=== PATIENT | male | born 2000 | race Caucasian/White ===

== ENCOUNTER 2024-04-10 14:44 | Emergency (ER) | payer OTHER, SELFPAY ==
[2024-04-10 14:56] VITALS: BP 141/90
[2024-04-10 15:33] LABS: % Basophils 0.6 % (0-2); % Immature Granulocytes 0.1 % (0-0.5); % Monocytes 6.3 % (1.7-9.3); Absolute Basophils 0.1 10^3/uL (0-0.2); Absolute Lymphocytes 1.7 10^3/uL (1.2-3.4); Absolute Monocytes 0.5 10^3/uL (0.1-0.6); Absolute Neutrophils 5.6 10^3/uL (1.4-6.5); Hematocrit 43.1 % (39.0-52.0); Hemoglobin 15.2 g/dL (13.0-18.0); Mean Corp Hgb Conc. 35.3 g/dL (33.0-37.0); Mean Corpuscular Hgb 29.4 pg (27.0-31.0); Mean Corpuscular Volume 83.4 fL (80.0-94.0); Mean Platelet Volume 9.3 fL (7.4-10.4); Nucleated Red Blood Cells % 0 % (-); Platelet Count 291 10^3/uL (130-400); Red Blood Cell Count 5.17 10^6/uL (4.70-6.10); Red Cell Dist. Width 12.6 % (11.5-14.5); White Blood Cell Count 7.8 10^3/uL (4.8-10.8)
[2024-04-10 15:50] LABS: Urine Albumin Negative (Neg - Trace); Urine Bilirubin Negative (Negative); Urine Character Clear (Clear); Urine Color Straw; Urine Glucose Negative (Negative); Urine Ketone Negative (Negative); Urine Leukocyte Negative (Negative); Urine Nitrite Negative (Negative); Urine Occult Blood Negative (Negative); Urine Specific Gravity 1.005 (<1.030); Urine Urobilinogen Negative (Neg - 1+)
[2024-04-10 15:57] LABS: ALT (SGPT) 14 U/L (0-50); AST (SGOT) 17 U/L (17-59); Albumin 4.9 g/dl (3.5-5.0); Alkaline Phosphatase 47 U/L (38-126); Blood Urea Nitrogen 17 mg/dl (9-20); Calcium 10.1 mg/dl (8.4-10.2); Carbon Dioxide 24 mmol/L (22-30); Chloride 102 mmol/L (98-107); Glucose 111 mg/dl (70-99); Lipase 80 U/L (23-300); Potassium 4.2 mmol/L (3.5-5.1); Sodium 137 mmol/L (135-145); Total Bilirubin 2.3 mg/dl (0.2-1.3); eGFR > 60.00
[2024-04-10] MEDS: PROTONIX 40 MG PO (16:59)
[2024-04-10 19:18] VITALS: BP 118/78
--- NOTE | 2024-04-10 19:26 | ED.GENMED ---
History of Present Illness
General
Chief Complaint: Abdominal Symptoms
Source: patient
Exam Limitations: none
Time Seen by Provider: 04/10/24 16:20
Travel History
Have you had any contact with someone who has COVID-19?: No
Do you have any symptoms of coronavirus? Fever > 100 degrees, chills, cough, shortness of breath, sore throat, loss of taste or smell, muscle aches, or headache?: No
History of Present Illness
History of Present Illness:
23-year-old male with almost 1 week of vague upper abdominal discomfort. No vomiting. No change in bowels no fever. Symptoms are mild but ongoing in nature
Past History
Past History
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
ED Past Surgical History: Appendectomy
Social History
Tobacco: Non-smoker
Phy Exam
Physical Exam
Physical Exam:
GENERAL: Alert and oriented in no apparent distress
EYE: Orbits normal.
NECK: Supple
CARDIAC: Regular rate and rhythm without any obvious murmurs.
LUNGS: Clear breath sounds,normal
ABDOMEN: Soft, normal epigastric tenderness. No rebound or guarding no mass or hernia
NEUROLOGICAL: Alert and oriented , grossly non-focal
SKIN: Warm and dry, no rash or lesion, no discoloration, skin intact.
MUSCULOSKELETAL: No edema,no deformity.Good color
PSYCH: Normal and appropriate interaction.
Course
Orders/Labs/Results
Orders:
Orders
04/10/24 15:18
Complete Blood Count/With Diff Urgent
Comprehensive Metabolic Panel Urgent
Lipase Urgent
04/10/24 15:22
Urinalysis Reflex To Culture Urgent
Date Specimen was Collected: 04/10/24
Time Specimen was Collected: 15:01
04/10/24 16:53
US Abdomen Complete/Upper Urgent
Comment:
Reason For Exam: Upper abdominal pain
04/10/24 16:54
Pantoprazole [Protonix] 40 mg PO NOW STA
Abnormal Lab Results
04/10/24
15:18
Glucose 111 H mg/dl
(70-99)
Total Bilirubin 2.3 H mg/dl
(0.2-1.3)
04/10/24 15:18
04/10/24 15:18
Vital Signs
Initial and Last Documented VS:
Initial Vital Signs
Temp Pulse Resp BP Pulse Ox
99.9 F 105 20 141/90 99
04/10/24 14:56 04/10/24 14:56 04/10/24 14:56 04/10/24 14:56 04/10/24 14:56
Last Documented Vital Signs
Temp Pulse Resp BP Pulse Ox
99.9 F 105 18 118/78 98
04/10/24 14:56 04/10/24 19:20 04/10/24 19:18 04/10/24 19:18 04/10/24 19:18
MDM/Problems Addressed
Differential Diagnosis Includes:
Likely gastritis. Incidental Gaubert syndrome. Ultrasound negative. PPI and follow-up
*Radiology
Radiology exam reviewed: radiology read reviewed (Negative ultrasound)
*Pulse Oximetry
Patient hypoxic: no
*Critical Care Note
Total Time (30-74mins, 75-104mins- exclusive of procedures): Not Applicable
Data Reviewed
Review of Other/Old Records Reveals: Labs and Testing
Update Note
Update Note:
Patient medically stable and nontoxic. Likely gastritis. Incidental Gaubert syndrome. PPI and follow-up
ED Attending Note
-
Portions of this chart may have been created with voice recognition software.� Occasional wrong word or��sound alike� substitutions may have occurred due to the inherent limitations of voice recognition software.
Discharge Plan
Departure
Patient Disposition: Home (Routine Discharge)
Date of Disposition: 04/10/24
Time of Disposition: 19:27
Patient with high blood pressure during this ER visit?: No
Discharge Problem:
Epigastric pain
Instructions: Abdominal Pain
Prescriptions:
New
pantoprazole [Protonix] 40 mg tablet,delayed release (DR/EC)
40 mg PO DAILY 14 Days Qty: 14 0RF
No Action
ranitidine HCl [Zantac Maximum Strength] 150 MG tablet
150 mg PO PRN PRN (Reason: as directed)
Referrals:
Nery Blanco MD [Active] - Next open appointment
NONE,* [Family Provider] -
Activity Restrictions/Additional Instructions:
Protonix as directed
Light diet
I gave you the name of a GI physician you could call for follow-up. You should also follow-up with your regular physician
Return sooner with increased pain fever vomiting or if symptoms have not resolved in 2 to 4 days
Interventions
Interventions:
*Risk Screen - Suicide Last Done: 04/10/24 16:18
*General Assessment Last Done: 04/10/24 16:18
*Neglect/Abuse Screening Last Done: 04/10/24 16:18
ED- Fall Risk Assessment Last Done: 04/10/24 16:19
*ED COVID-19 Vaccine History Last Done: 04/10/24 16:18
RM-Lptnlu-Jxjmcvdmfp Assessment Last Done: 04/10/24 16:19
Discharge Date and Time
Print Language: WALLISIAN
== END 2024-04-10 19:41 | disposition home or self-care (01) ==
LOC: EMR 14:44
PROVIDERS: EMERGENCY PHYSICIAN Emergency Medicine
DX: R10.13 Epigastric pain (principal); E80.4 Gilbert syndrome; Z88.0 Allergy status to penicillin
CPT/HCPCS: 99284; 76700; 80053; 81003; 83690; 85025

== ENCOUNTER 2024-09-18 17:49 | Emergency (ER) | payer OTHER, SELFPAY ==
[2024-09-18 17:54] VITALS: BP 153/114
[2024-09-18 18:18] LABS: % Basophils 0.8 % (0-2); % Eosinophils 0.6 % (0-6); % Immature Granulocytes 0.3 % (0-0.5); % Lymphocytes 36.5 % (20.5-51.1); % Monocytes 9.9 % (1.7-9.3); % Neutrophils 51.9 % (42.2-75.2); Absolute Basophils 0.1 10^3/uL (0-0.2); Absolute Eosinophils 0.1 10^3/uL (0-0.7); Absolute Lymphocytes 2.9 10^3/uL (1.2-3.4); Absolute Monocytes 0.8 10^3/uL (0.1-0.6); Absolute Neutrophils 4.1 10^3/uL (1.4-6.5); Hematocrit 43.2 % (39.0-52.0); Hemoglobin 15.4 g/dL (13.0-18.0); Mean Corp Hgb Conc. 35.6 g/dL (33.0-37.0); Mean Corpuscular Hgb 29.6 pg (27.0-31.0); Mean Corpuscular Volume 83.1 fL (80.0-94.0); Nucleated Red Blood Cells % 0 % (-); Platelet Count 308 10^3/uL (130-400); Red Cell Dist. Width 12.4 % (11.5-14.5); White Blood Cell Count 7.8 10^3/uL (4.8-10.8)
[2024-09-18 18:40] LABS: ALT (SGPT) 15 U/L (0-50); AST (SGOT) 18 U/L (17-59); Albumin 4.9 g/dl (3.5-5.0); Alkaline Phosphatase 43 U/L (38-126); Blood Urea Nitrogen 24 mg/dl (9-20); Calcium 9.7 mg/dl (8.4-10.2); Carbon Dioxide 18 mmol/L (22-30); Chloride 102 mmol/L (98-107); Glucose 116 mg/dl (70-99); Potassium 3.9 mmol/L (3.5-5.1); Sodium 138 mmol/L (135-145); Total Bilirubin 3.7 mg/dl (0.2-1.3); Total Protein 7.6 g/dl (6.3-8.2); eGFR > 60.00
[2024-09-18 18:50] LABS: Troponin I < 0.012 ng/ml
--- NOTE | 2024-09-18 20:02 | ED.GENMED ---
History of Present Illness
General
Chief Complaint: Breathing Problem
Source: patient and family
Time Seen by Provider: 09/18/24 19:35
History of Present Illness
History of Present Illness:
23yoM with no significant past medical history presenting with his mother for evaluation of shortness of breath. Symptoms began 2 days ago. He reports intermittent dyspnea, chest tightness, and palpitations over the past few days. Symptoms occur at
different times including at night while he is trying to sleep. He also had palpitations while walking up the steps earlier today. He was able to go for a run and had minimal symptoms with exercise. He is unsure if his symptoms are related to
anxiety. He admits to being on edge recently due to job stressors. No syncope. No tobacco use or family history of cardiac disease.
Past History
Past History
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
ED Past Surgical History: Appendectomy
Social History
Tobacco: Non-smoker
Phy Exam
Physical Exam
Physical Exam:
Patient visibly anxious and fidgeting during exam
General Physical Exam
General Presentation: well appearing and no apparent distress
General age: appears stated age
General Skin: warm and dry
General Mental: anxious
ENT Exam
ENT Exam: normocephalic
Cardiovascular Exam
Cardiovascular Exam: no murmur and tachycardia
Pulmonary Exam
Pulmonary Exam: lungs clear, no respiratory distress, no rales, no crackles, no rhonchi and no wheezing
[place] Coma Scale
Eye Opening: Spontaneous
Verbal Response: Oriented
Motor Response: Obeys Commands
GCS Total Score: 15
Skin Exam
Skin Exam: normal color and warm/dry
Psychiatric Exam
Psychiatric Exam: anxious
Course
Orders/Labs/Results
Orders:
Orders
09/18/24 17:50
Electrocardiogram (*1) Urgent
Reason for Study: Shortness of Breath
09/18/24 17:51
EKG- Treatment ONCE
09/18/24 18:07
Complete Blood Count/With Diff Urgent
Comprehensive Metabolic Panel Urgent
Magnesium Urgent
Comment: ADDON
TSH Urgent
Comment: ADDON
Troponin I Urgent
09/18/24 20:01
Add On- LAB Urgent
Tests Added?: TSH, magnesium
Lorazepam [Ativan] 1 mg IV NOW STA
CR Chest - 2 Views Urgent
Comment:
Reason For Exam: SOB
09/18/24 20:32
D-Dimer Urgent
09/18/24 20:34
Electrocardiogram (*1) Urgent
Reason for Study: Chest Pain
EKG- Treatment ONCE
Abnormal Lab Results
09/18/24
18:07
Absolute Monos (auto) 0.8 H 10^3/uL
(0.1-0.6)
Monocytes % 9.9 H %
(1.7-9.3)
Carbon Dioxide 18 L mmol/L
(22-30)
BUN 24 H mg/dl
(9-20)
Glucose 116 H mg/dl
(70-99)
Total Bilirubin 3.7 H mg/dl
(0.2-1.3)
09/18/24 18:07
09/18/24 18:07
Vital Signs
Initial and Last Documented VS:
Initial Vital Signs
Temp Pulse Resp BP Pulse Ox
98.3 F 116 18 153/114 100
09/18/24 17:54 09/18/24 17:54 09/18/24 17:54 09/18/24 17:54 09/18/24 17:54
Last Documented Vital Signs
Temp Pulse Resp BP Pulse Ox
98.3 F 98 16 146/89 99
09/18/24 17:54 09/18/24 22:24 09/18/24 22:24 09/18/24 22:21 09/18/24 22:21
MDM/Problems Addressed
Differential Diagnosis Includes:
23yoM here with intermittent SOB, palpitations, and chest tightness x 2 days. Heart rate 116 in triage. Oxygen saturation 100%. He is anxious and fidgeting during exam. Differential diagnosis includes but is not limited to: anxiety, arrhythmia,
thyroid dysfunction, pneumonia, less likely ACS
Initial ED plan: Cardiac labs and EKG obtained in triage. EKG shows sinus tachycardia with a HR of 140. Troponin WNL. Bilirubin is 3.7, patient has a documented history of Gilbert syndrome. Will add on magnesium, TSH, D-dimer, CXR, and repeat EKG.
IV Ativan for symptoms.
*EKG
Interpreted by ED Provider?: Yes
EKG Intrepretation Date: 09/18/24
Heart Rate: 111
Rate: tachycardiac
Rhythm: sinus
[place]: normal axis
Interval: normal interval
QRS Pattern: normal QRS
Ischemia: no ischemia
*Critical Care Note
Total Time (30-74mins, 75-104mins- exclusive of procedures): Not Applicable
Update Note
Update Note:
Repeat EKG shows sinus tachycardia with a HR of 111. EKG is otherwise normal. TSH and electrolytes normal. D-dimer normal making PE very unlikely. CXR is clear. Patient feeling improved after receiving Ativan. Heart rate also improved. No indication
for hospitalization. Patient does endorse a lot of anxiety recently. Prescription provided for PRN hydroxyzine. Advised close f/u with PCP and ED return precautions discussed. He expressed understanding and is agreeable to plan. He was discharged in
stable condition.
ED Attending Note
-
Portions of this chart may have been created with voice recognition software.� Occasional wrong word or��sound alike� substitutions may have occurred due to the inherent limitations of voice recognition software.
Discharge Plan
Departure
Patient Disposition: Home (Routine Discharge)
Date of Disposition: 09/18/24
Time of Disposition: 22:21
Patient with high blood pressure during this ER visit?: No
Discharge Problem:
Palpitations, Anxiety
Instructions: Heart Palpitations
Prescriptions:
New
hydroxyzine HCl 25 mg tablet
25 mg PO TID PRN (Reason: anxiety) Qty: 14 0RF
No Action
ranitidine HCl [Zantac Maximum Strength] 150 MG tablet
150 mg PO PRN PRN (Reason: as directed)
pantoprazole [Protonix] 40 mg tablet,delayed release (DR/EC)
40 mg PO DAILY 14 Days Qty: 14 0RF
Referrals:
NONE,* [Family Provider] -
Activity Restrictions/Additional Instructions:
Take hydroxyzine as needed for anxiety.
Please follow-up with your family doctor. Return to the ER with any new or worsening symptoms.
Interventions
Interventions:
*Risk Screen - Suicide Last Done: 09/18/24 22:28
*General Assessment Last Done: 09/18/24 22:28
*Neglect/Abuse Screening Last Done: 09/18/24 22:28
ED- Fall Risk Assessment Last Done: 09/18/24 22:28
*ED COVID-19 Vaccine History Last Done: 09/18/24 20:37
*Nursing Disposition Last Done: 09/18/24 22:28
ED- Cardiac Assessment Last Done: 09/18/24 20:31
ED- Pulmonary Assessment Last Done: 09/18/24 20:31
Discharge Date and Time
Discharge Date/Time: 09/18/24 22:30
Print Language: [place]ET[place]ESE
[2024-09-18] MEDS: ATIVAN 1 MG IV (20:28)
[2024-09-18 20:30] VITALS: BP 142/98
[2024-09-18 20:34] LABS: Magnesium 1.6 mg/dl (1.6-2.3)
[2024-09-18 20:55] LABS: D-Dimer < 0.27 ug/mlFEU (0.00-0.50)
[2024-09-18 21:00] VITALS: BP 144/90
[2024-09-18 22:09] LABS: TSH 2.78 uIU/ml (0.47-4.68)
[2024-09-18 22:21] VITALS: BP 146/89
== END 2024-09-18 22:30 | disposition home or self-care (01) ==
LOC: EMR 17:49
PROVIDERS: Physician Assistant; Student in an Organized Health Care Education/Training Program; EMERGENCY PHYSICIAN Emergency Medicine
DX: F41.9 Anxiety disorder, unspecified (principal); R00.2 Palpitations; Z90.49 Acquired absence of other specified parts of digestive tract
CPT/HCPCS: 96374; 99285; 71046; 80053; 83735; 84443; 84484; 85025; 85379; 93005

== ENCOUNTER → 2024-11-13 09:36 | Outpatient (REF) | payer OTHER, SELFPAY | LOC: HWRAD 09:36 | PROVIDERS: ATTENDING PHYSICIAN Nurse Practitioner Adult Health | DX: J45.909 Unspecified asthma, uncomplicated (principal) | CPT/HCPCS: 71046 ==

== ENCOUNTER 2025-05-03 00:37 | Emergency (ER) | payer OTHER, SELFPAY ==
[2025-05-03 00:41] VITALS: BP 123/82
--- NOTE | 2025-05-03 00:46 | ED.GENMED ---
History of Present Illness
General
Chief Complaint: Abdominal Pain
Source: patient
Exam Limitations: none
Time Seen by Provider: 05/03/25 00:45
Nursing documentation reviewed up to this point in time: agreed with
History of Present Illness
History of Present Illness:
Note:
CHIEF COMPLAINT(S)
Upper abdominal pain
HISTORY OF PRESENT ILLNESS
The patient is a 24-year-old male with a past medical history of acid reflux and Sullivan syndrome, presenting with a chief complaint of upper abdominal pain that began this morning. The pain was initially perceived as gaseous discomfort, described
as a burning sensation radiating to the back at times. He notes that sometimes it will radiate into the chest. He has no personal or family history of cardiac disease. It worsened with activity but temporarily subsided with rest. Patient reports
that he has associated persistent flatulence. The pain persists consistently, unaffected by changes in position. The patient states that he has had similar episode of pain in the past but it has never been this severe before. Patient denies
vomiting, or significant nausea, though he describes feeling slightly nauseated. He has no known history of significant respiratory symptoms, apart from some nasal congestion and a runny nose. The patient has no history of gallbladder removal and
reports a history of appendectomy but denies other abdominal surgeries. The patient denies hematemesis, ectal bleeding, dark tarry stools.
ALLERGIES
Patient is allergic to penicillins
PAST MEDICAL HISTORY
- Acid reflux
- Sullivan syndrome
PAST SURGICAL HISTORY
- appendectomy
PHYSICAL EXAM
General: Patient is well appearing and in no acute distress; non-toxic
Skin: Warm and dry, no rashes or lesions
Head: Normocephalic, atraumatic
Eyes: Sclera non-icteric. EOMs intact.
Cardiac: Regular rate and rhythm, no murmurs
Pulm: Normal respiratory effort, no wheezes, rales, rhonchi
Abdomen: No abdominal tenderness to palpation, abdomen soft, negative Bazan sign
Musculoskeletal: No tenderness to palpation of the external chest wall
Neuro: CN II-XII intact, no focal neurologic deficits.
Psychiatric: Appropriate mood and affect.
PLAN
- check troponin
- check lipase, cbc, cmp
- check ecg
- check abdominal ultrasound
DIFFERENTIAL DIAGNOSIS
The Differential Diagnosis includes, in no particular order and is not limited to:
- Gastroesophageal reflux disease (GERD) exacerbation
- Peptic ulcer disease
- Pancreatitis
- Gallbladder disease (e.g., cholecystitis or biliary colic)
- Gastritis
- Esophageal spasm
- Functional dyspepsia
- Cardiac-related chest pain (e.g., angina)
- Musculoskeletal pain
CHART REVIEW
Reviewed previous ER physician documentation from 04/10/2024 patient seen for unspecified abdominal pain had similar presentation was diagnosed with gastritis, reviewed documentation from 07/29/2018 patient seen for upper abdominal pain he was
discharged with unremarkable workup diagnosis Gibert syndrome told to follow-up with GI
Patient reports that he is never had a scope or endoscopy in the past
MDM/DISPOSITION
24-year-old male presents emergency department today with concerns of upper abdominal pain. He has a history of indigestion/GERD in the past. He currently does not take any medications for this. Patient reports that the upper abdominal pain
radiates into the chest. This started upon waking this morning. Symptoms completely resolved with dose of IV Protonix and GI cocktail. Suspect GERD/esophagitis/gastritis. Patient has no signs of GI bleeding. His H&H is normal. His CMP is
consistent with Gilbert's, discussed repeating blood work with PCP. Recommended evaluation with gastroenterology to possibly get an upper endoscopy. Will prescribe Protonix for 2-week trial. Discussed close return precautions.
Past History
Past History
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
ED Past Surgical History: Appendectomy
Social History
Tobacco: Non-smoker
Review of Systems
Review of Systems
All Other Systems: ROS reviewed and negative except as documented in HPI and ROS
Phy Exam
Physical Exam
Physical Exam:
See HPI
Course
Orders/Labs/Results
Orders:
Orders
05/03/25 00:51
Complete Blood Count/With Diff Urgent
Comprehensive Metabolic Panel Urgent
Lipase Urgent
05/03/25 00:54
Electrocardiogram (*1) Urgent
Reason for Study: Chest Pain
EKG- Treatment ONCE
US Abdomen Complete/Upper Urgent
Comment:
Reason For Exam: diffuse upper abdominal pain
05/03/25 00:55
Mag Hydrox/Al Hydrox/Simeth [Maalox] 30 ml Phenobarb/Hyoscy/Atropine/Scop [] 10 ml PO NOW
Pantoprazole [Protonix IV] 40 mg IV NOW STA
05/03/25 00:57
Mag Hydrox/Al Hydrox/Simeth [Maalox] 30 ml .ROUTE .STK-MED ONE
Phenobarb/Hyoscy/Atropine/Scop [] 10 ml .ROUTE .STK-MED ONE
05/03/25 00:58
Troponin I Urgent
Abnormal Lab Results
05/03/25
00:51
WBC 12.1 H 10^3/uL
(4.8-10.8)
Abs Immat Gran (auto) 0.1 H 10^3/uL
(0-0.05)
Absolute Neuts (auto) 8.2 H 10^3/uL
(1.4-6.5)
Absolute Monos (auto) 1.4 H 10^3/uL
(0.1-0.6)
Lymphocytes % 17.3 L %
(20.5-51.1)
Monocytes % 11.5 H %
(1.7-9.3)
Glucose 129 H mg/dl
(70-99)
Total Bilirubin 2.7 H mg/dl
(0.2-1.3)
AST 69 H U/L
(17-59)
ALT 92 H U/L
(0-50)
05/03/25 00:51
05/03/25 00:51
Vital Signs
Initial and Last Documented VS:
Initial Vital Signs
Temp Pulse Resp BP Pulse Ox
97.7 F 100 20 123/82 99
05/03/25 00:41 05/03/25 00:41 05/03/25 00:41 05/03/25 00:41 05/03/25 00:41
Last Documented Vital Signs
Temp Pulse Resp BP Pulse Ox
98.4 F 74 18 136/80 99
05/03/25 02:56 05/03/25 02:56 05/03/25 02:56 05/03/25 02:56 05/03/25 02:56
*Pulse Oximetry
SaO2: 99
Oxygen Mode of Delivery: Room air
*Critical Care Note
Total Time (30-74mins, 75-104mins- exclusive of procedures): Not Applicable
ED Attending Note
-
Portions of this chart may have been created with voice recognition software.� Occasional wrong word or��sound alike� substitutions may have occurred due to the inherent limitations of voice recognition software.
Discharge Plan
Departure
Patient Disposition: Home (Routine Discharge)
Date of Disposition: 05/03/25
Time of Disposition: 03:38
Patient with high blood pressure during this ER visit?: No
Condition: Good
Discharge Problem:
Acute upper abdominal pain, GERD (gastroesophageal reflux disease)
Instructions: Acid reflux and GERD in adults, Abdominal Pain
Prescriptions:
New
pantoprazole 20 mg tablet,delayed release (DR/EC)
20 mg PO DAILY 14 Days Qty: 14 0RF
No Action
ranitidine HCl [Zantac Maximum Strength] 150 MG tablet
150 mg PO PRN PRN (Reason: as directed)
pantoprazole [Protonix] 40 mg tablet,delayed release (DR/EC)
40 mg PO DAILY 14 Days Qty: 14 0RF
hydroxyzine HCl 25 mg tablet
25 mg PO TID PRN (Reason: anxiety) Qty: 14 0RF
Referrals:
Nkechi rWen MD [Active, Gastroenterology] - Call in 1-3 days for appt
Laura Lujan DO [Family Provider, Family Practice]
Activity Restrictions/Additional Instructions:
Please start taking pantoprazole for a 2 week trial. You take 1 tablet once daily for 2 weeks. Please call your GI office to schedule follow-up appointment.
Your blood work is unremarkable.
Please follow-up with your primary care provider.
PLEASE RETURN EMERGENCY DEPARTMENT SHOULD YOU DEVELOP ANY ACUTE WORSENING OF YOUR PAIN, FEVERS OR CHILLS, RECTAL BLEEDING, VOMITING OF BLOOD, DARK BLACK TARRY STOOLS, CHEST PAIN, DIZZINESS, LIGHTHEADEDNESS, OR ANY OTHER SIGNS OR SYMPTOMS WORRISOME
TO YOU.
Interventions
Interventions:
*Risk Screen - Suicide Last Done: 05/03/25 00:41
*General Assessment Last Done: 05/03/25 00:41
*Neglect/Abuse Screening Last Done: 05/03/25 00:41
*ED- Fall Risk Assessment Last Done: 05/03/25 00:41
*ED COVID-19 Vaccine History Last Done: 05/03/25 00:41
*Nursing Disposition Last Done: 05/03/25 03:44
CD-Ziltzl-Uatspwcqax Assessment Last Done: 05/03/25 00:53
Discharge Date and Time
Discharge Date/Time: 05/03/25 03:45
Print Language: UPPER [place]
[2025-05-03 00:57] LABS: % Basophils 0.7 % (0-2); % Eosinophils 2.7 % (0-6); % Immature Granulocytes 0.4 % (0-0.5); % Lymphocytes 17.3 % (20.5-51.1); % Monocytes 11.5 % (1.7-9.3); % Neutrophils 67.4 % (42.2-75.2); Absolute Basophils 0.1 10^3/uL (0-0.2); Absolute Eosinophils 0.3 10^3/uL (0-0.7); Absolute Immature Granulocytes 0.1 10^3/uL (0-0.05); Absolute Lymphocytes 2.1 10^3/uL (1.2-3.4); Absolute Monocytes 1.4 10^3/uL (0.1-0.6); Absolute Neutrophils 8.2 10^3/uL (1.4-6.5); Hematocrit 41.6 % (39.0-52.0); Hemoglobin 14.5 g/dL (13.0-18.0); Mean Corp Hgb Conc. 34.9 g/dL (33.0-37.0); Mean Corpuscular Hgb 29.9 pg (27.0-31.0); Mean Corpuscular Volume 85.8 fL (80.0-94.0); Mean Platelet Volume 9.1 fL (7.4-10.4); Nucleated Red Blood Cells % 0 % (-); Platelet Count 268 10^3/uL (130-400); Red Blood Cell Count 4.85 10^6/uL (4.70-6.10); Red Cell Dist. Width 13.3 % (11.5-14.5); White Blood Cell Count 12.1 10^3/uL (4.8-10.8)
[2025-05-03] MEDS: MAALOX 40 PO (00:59)
[2025-05-03] MEDS: PROTONIX IV 40 MG IV (01:00)
[2025-05-03 01:19] LABS: ALT (SGPT) 92 U/L (0-50); AST (SGOT) 69 U/L (17-59); Albumin 4.5 g/dl (3.5-5.0); Alkaline Phosphatase 54 U/L (38-126); Blood Urea Nitrogen 17 mg/dl (9-20); Calcium 9.2 mg/dl (8.4-10.2); Carbon Dioxide 25 mmol/L (22-30); Chloride 107 mmol/L (98-107); Glucose 129 mg/dl (70-99); Lipase 77 U/L (23-300); Potassium 3.8 mmol/L (3.5-5.1); Sodium 139 mmol/L (135-145); Total Bilirubin 2.7 mg/dl (0.2-1.3); Total Protein 7.4 g/dl (6.3-8.2); eGFR > 60.00
[2025-05-03 01:39] LABS: Troponin I < 0.012 ng/ml
[2025-05-03 02:56] VITALS: BP 136/80
== END 2025-05-03 03:45 | disposition home or self-care (01) ==
LOC: EMR 00:37
PROVIDERS: Physician Assistant; EMERGENCY PHYSICIAN Student in an Organized Health Care Education/Training Program; FAMILY PHYSICIAN Internal Medicine
DX: R10.10 Upper abdominal pain, unspecified (principal); K21.9 Gastro-esophageal reflux disease without esophagitis
CPT/HCPCS: 99285; 96374; 76700; 80053; 83690; 84484; 85025; 93005